=== PATIENT | female | born 2000 | race African-American/Black ===

== ENCOUNTER 2023-04-29 10:00 | Outpatient (REF) | payer OTHER, SELFPAY ==
[2023-04-29 12:54] LABS: Syphilis Screen Nonreactive (Nonreactive)
[2023-04-29 15:03] LABS: Appearance Urine Cloudy; Color Urine Yellow; Glucose Urine UA Negative (Negative); Leukocyte Esterase Urine Negative (Negative); Nitrite Urine Negative (Negative); PH 5.5 (5.0-9.0); Specific Gravity - Urine 1.025 (1.005-1.025); UMIC TRIGGER UACC YES; Urine Blood Small (1+) (Negative); Urine Ketones Negative (Negative); Urine Protein Negative (Neg-Trace)
[2023-04-29 15:11] LABS: Bacteria Urine Trace (None Seen); Hyaline Casts Urine 0-2 /LPF (0-2); RBC Urine 0-2 /HPF (0-2); Squamous Epithelial Cell Urine 0-2 /HPF (0-2); WBC Urine 0-5 /HPF (0-5)
[2023-05-02 05:07] LABS: HBc Num1 0.04 S/CO (0.00-0.79); HBsAGNum1 0.31 S/CO (0.00-0.99); HIV AB/AG Nonreactive (Nonreactive); HIV Num 1 0.05 S/CO (0.00-0.99); Hepatitis B Core Antibody Nonreactive (Nonreactive); Hepatitis B Surface Antigen Negative (Negative); ~HepC Num1 0.08 S/CO (0.00-0.79); ~Hepatitis C Antibody Nonreactive (Nonreactive)
[2023-05-02 05:50] LABS: HBS Num1 8.81 mIU/mL (0-7.99)
[2023-05-02 06:40] LABS: HBS Num2 8.75 mIU/mL (0-7.99); HBS Num3 8.73 mIU/mL (0-7.99); ~Hepatitis B Surface Antibody GRAYZONE (Nonreactive)
== END 2023-04-29 10:01 | disposition home or self-care (01) ==
LOC: HO.WFDLDS 10:00
PROVIDERS: Visit Provider Nurse Practitioner Family
DX: Z11.3 Encounter for screening for infections with a predominantly sexual mode of transmission (principal); Z11.4 Encounter for screening for human immunodeficiency virus [HIV]
CPT/HCPCS: 36415; 81001; 81003; 86704; 86706; 86780; 86803; 87340; 87389

== ENCOUNTER 2023-05-02 09:26 | Outpatient (REF) | payer OTHER, SELFPAY | END 2023-05-02 09:27 | disposition home or self-care (01) | LOC: HO.LAB 09:26 | PROVIDERS: Visit Provider Nurse Practitioner Family | DX: Z13.89 Encounter for screening for other disorder (principal) ==

== ENCOUNTER → 2023-09-06 13:18 | Outpatient (AMB) | payer OTHER, SELFPAY ==
--- NOTE | 2023-09-06 13:08 | AM.OFFWIN_ITS ---
Intake Vital Signs 09/06/23 13:09 Height 5 ft 3 in Weight 164 lb 2 oz BMI 29.1 BP 100/62 Blood Pressure Location Rt brachial Position Sitting Respiration 13 Pulse 74 Pulse Source Pulse Oximeter Temp 97.8 F Temp Source Temporal Artery Scan Pulse Oximetry (%) 99 Oxygen Delivery Method Room Air Intake Visit Reasons: ear pain Intake Note: pain in both ears since tuesday. recently took trip to [facility] and in the water alot. now has pain in inner and outer ear with pressure. Patient Tobacco Use Status: Never used Tobacco Accompanied by: Self / Same As Patient Allergies Seasonal Allergies Allergy (Severe, Verified 09/06/23 14:14) Swelling Medication List - Last Reconciled 09/06/23 by Tricia Merritt CNP diphenhydramine HCl (Benadryl) 25 mg PO BEDTIME PRN etonogestrel (Nexplanon) subdermal HPI HPI Comments History of Present Illness Details 23-year-old female presents with complai nts of bilateral ear pain and pressure. She notes that his symptoms have been ongoing for the past 5 days. She notes feels as though there is fluid in her ears. Her symptoms started shortly after she returned from vacation in [place]; she spent significant amount of time in the pool and river [facility] Medical History (Updated 09/06/23 @ 14:29 by Tricia Merritt CNP) Seasonal allergies Eczema Surgical History (Updated 04/28/23 @ 13:26 by Dina Hurtado CMA) No pertinent past surgical history Family History (Updated 04/28/23 @ 13:30 by Dina Hurtado CMA) Maternal Grandfather Diabetes Prostate cancer Lung cancer Maternal Grandmother Emphysema lung Hypertension Mother High blood cholesterol Father High blood cholesterol Kidney stones (Updated 04/28/23 @ 13:36 by Dina Hurtado CMA) Household Members: Family Both parents involved: No Caregiver staying overnight: No Housing: House Are you a primary date night caregiver to a significant other at home: No Do you presently have visiting nurse or other home services: No 75 years or older and lives alone: No Alcohol intake: current Alcohol intake frequency: holidays/special occasions only Alcohol type: wine and hard liquor Patient Tobacco Use Status: Never used Tobacco e-Cigarette/Vaping Use: Never Used Special yusef needs: No Agree to transfusion: Yes service: No Current occupational status: employed Current occupation: [employer] Current occupational exposures/hazards: Yes Sexual orientation: Bisexual Gender identity: Female Cognitive needs: No Hearing needs: No Vision needs: No Review of Systems Const Details: Const Denies chills, Denies fatigue, Denies fever(s), Denies headache(s) and Denies weakness ENT Reports as per HPI Resp Denies cough, Denies dyspnea, Denies wheezing and Denies other (shortness of breath) Cardio Denies chest pain, Denies lightheadedness, Denies dyspnea and Denies other (palpitations) Neuro Denies dizziness, Denies headache(s), Denies numbness, Denies tingling and Denies weakness Psych Denies anxiety, Denies depression, Denies memory?loss Endo Denies fatigue Aller/Immun Denies wheezing Physical Exam Vital Signs: Last Vital Signs Temp 97.8 F 09/06/23 13:09 Pulse 74 09/06/23 13:09 Resp 13 09/06/23 13:09 Pulse Ox 99 09/06/23 13:09 Oxygen Delivery Method Room Air 09/06/23 13:09 BMI result Body Mass Index 29.1 Const Other: Const General: well developed; No acute distress Nutritional Appearance: well nourished Orientation/consciousness: patient oriented x3 HEENT Head is normocephalic Significant erythema noted to both ear canal and TM, scant yellow drainage noted on the right TM Nasal turbinates and oropharynx are pink and moist Sinuses are nontender with palpation No auricular or cervical lymphadenopathy Eyes General: appearance normal, both eyes and all related structures Pupils: Equal, round and reactive pupils present EOM: EOMs intact bilaterally Resp Effort & Inspection: normal respiratory effort Auscultation: clear to auscultation bilaterally Cardio Rate: regular rate Rhythm: regular rhythm Heart sounds: S1 normal heart sound present, S2 normal heart sound present, no gallops, no murmurs and no rubs Bruits: no abdominal aortic bruits and no carotid bruits Neuro General: patient oriented x3 and gait normal, no focal neuro deficit Cranial nerves: Yes Equal, round and reactive pupils present Psych Affect: normal affect Assessment & Plan Assessment & Plan (1) Bilateral otitis media: Code(s): H66.93 - Otitis media, unspecified, bilateral Plan: Patient reports 5 days of bilateral ear pain and pressure. Her symptoms started shortly after spending significant amount of time in the pool and river while vacationing Significant erythema noted to both ear canal and TM, scant yellow drainage noted on the right TM Augmentin, ofloxacin, and ibuprofen as prescribed Avoid swimming pools or xie until healed Follow-up with worsening or new symptoms Verbalized understanding and agreed with treatment plan (2) Bilateral otitis externa: Code(s): H60.93 - Unspecified otitis externa, bilateral Plan: As above Medications: New ofloxacin 0.3% Apply 5 drops in both ears x 7 days 5 drps otic (ears) DAILY 10 mL 0RF 7 days amoxicillin-pot clavulanate 500-125 mg (Augmentin) 1 tab PO BID 14 tabs 0RF 7 days ibuprofen 600 mg PO Q6H PRN 60 tabs 0RF pain Coding Level of Care Code Est Pt Level 2 (10160) Diagnoses Bilateral otitis media H66.93 Bilateral otitis externa H60.93
[2023-09-06 13:09] VITALS: BP 100/62; PULSE 74; RESP 13; TEMP 36.6; O2SAT 99; BMI 29.1
== END ==
DX: H66.93 Otitis media, unspecified, bilateral (principal); H60.93 Unspecified otitis externa, bilateral
CPT/HCPCS: 99212

== ENCOUNTER 2023-11-28 08:59 | Outpatient (AMB) | payer OTHER, SELFPAY ==
[2023-11-28 09:20] VITALS: BP 118/60; PULSE 73; TEMP 36.5; O2SAT 99; BMI 30.3
--- NOTE | 2023-11-28 09:20 | A.OFFPC_ITS ---
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 care Intake Note: Patient is here as a new patient, would like her iron levels checked. Allergies Seasonal Allergies Allergy (Severe, Verified 11/28/23 09:34) Swelling Medication List - Last Reconciled 11/28/23 by Tricia Merritt CNP diphenhydramine HCl (Benadryl) 25 mg PO BEDTIME PRN etonogestrel (Nexplanon) subdermal fluticasone propionate 50 mcg/actuation 1 spray intranasal BID Tobacco use date assessed: 11/28/23 Dental Screening Dental Screen Date: 11/28/23 Did you have a dental visit in the last 12 months?: Yes Did you have a dental problem in the last 6 months where you did not have access to dental care?: No Was dental information given to patient?: Patient has dentist HPI HPI Comments History of Present Illness Details New patient Prior PCP:?[facility] Last office visit/CPE/Labs: About 6 years Acute issue(s): Anxiety and depression. No history of psychotropic medications or psychotherapy. She notes that anxiety often interferes with her daily activities and that she panics and shut down easily due to her anxiety. She states that her depression does not interfere with her daily life. Eczema. Currently on her ears, face, and forearms -Not on medication PMHx: Anxiety, depression, eczema SurgHx: None FHx: Mom: Asthma, HLD. Dad: HTN, HLD. MGM: Asthma, HLD, DM, clotting disorder. MGF: Asthma, HTN, DM, lung cancer, prostate cancer''' SocHx: Nonsmoker. Drinks occasionally. Smokes marijuana daily. [facility] Medical History (Updated 11/28/23 @ 09:52 by Tricia Merritt CNP) Seasonal allergies Eczema Surgical History No pertinent past surgical history Family History (Updated 11/28/23 @ 10:42 by Federica Neff CMA) Maternal Grandfather Diabetes Prostate cancer Lung cancer Asthma Hypertension Maternal Grandmother Emphysema lung Hypertension Asthma High blood cholesterol Diabetes Clotting disorder Mother High blood cholesterol Asthma Father High blood cholesterol Kidney stones Hypertension Other Mental health disorder Substance abuse Social History (Updated 04/28/23 @ 13:36 by Dina Hurtado [facility]) Household Members: Family Housing: House Are you a primary foster care worker to a significant other at home: No Do you presently have visiting nurse or other home services: No Alcohol intake: current Alcohol intake frequency: holidays/special occasions only Alcohol type: wine and hard liquor Patient Tobacco Use Status: Never used Tobacco e-Cigarette/Vaping Use: Never Used Special yusef needs: No Agree to transfusion: Yes service: No Current occupational status: employed Current occupation: [employer] [place] Current occupational exposures/hazards: Yes Sexual orientation: Bisexual Gender identity: Female Cognitive needs: No Hearing needs: No Vision needs: No Questionnaire PHQ-9 Over the last 2 weeks, how often have you been bothered by any of the following problems? 1. Little interest or pleasure in doing things: several days 2. Feeling down, depressed, or hopeless: several days 3. Trouble falling or staying asleep, or sleeping too much: several days 4. Feeling tired or having little energy: several days 5. Poor appetite or overeating: not at all 6. Feeling bad about yourself - or that you are a failure or have let yourself or your family down: not at all 7. Trouble concentrating on things, such as reading the newspaper or watching television: several days 8. Moving or speaking so slowly that other people could have noticed. Or the opposite - being so fidgety or restless that you have been moving around a lot more than usual: not at all 9. Thoughts that you would be better off or of hurting yourself in some way: not at all Total score: 5 Depression Screening Interpretation: Positive Depression Screening Follow-up: Existing condition and New Medication prescribed Depression Screening Done: Yes Source: Developed by Drs. Tate Rajput, Radha Do, Julián Garibay and colleagues, with an educational kathia from [employer]. Thrive Questionnaire Date Thrive assessed: 11/28/23 I am a: Patient What is your living situation today?: I have a steady place to live Within the past 12 months, did the food you bought not last and you didn't have the money to get more?: Never true Within the past 12 months, did you worry whether your food would run out before you got money to buy more?: Never true Do you have trouble paying for medicines?: No Do you have trouble getting transportation to medical appointments?: No Do you have trouble paying your heating and electricity bill?: No Do you have trouble taking care of your child, family member or friend?: No Do you have trouble with day-to-day activities such as bathing, preparing meals, shopping, managing finances, etc.?: No Are you currently unemployed and looking for a job?: No Are you interested in more education?: No THRIVE Score: 0 AUDIT C Alcohol Use Questionnaire (AUDIT-C) 1. How often do you have a drink containing alcohol?: Monthly or less 2. How many drinks containing alcohol do you have on a typical day when you are drinking?: 1 or 2 3. How often do you have six or more drinks on one occasion?: Never Total Score: 1 DWIGHT-7 AMB Questionnaire DWIGHT-7 Date DWIGHT - 7 assessed: 11/28/23 Feeling nervous, anxious, or on edge: 1 = Several days Not being able to stop or control worryin = Several days Worrying too much about different things: 1 = Several days Trouble relaxin = Several days Being so restless that it is hard to sit still: 1 = Several days Becoming easily annoyed or irritable: 3 = Nearly every day Feeling afraid as if something awful might happen: 0 = Not at all Total DWIGHT-7 score (0-4 normal; 5-9 mild; 10-14 moderate; 15-21 severe): 8 Source: Developed by Drs. Tate Rajput, Radha Do, Julián Garibay and colleagues, with an educational kathia from [employer]. Review of Systems Const Details: Const Denies chills, Denies fatigue, Denies fever(s), Denies headache(s) and Denies weakness ENT Denies dizziness and Denies headache(s) Card Denies chest pain, Denies lightheadedness, Denies dyspnea and Denies other (Palpitations) Resp Denies cough, Denies dyspnea, Denies wheezing and Denies other ( shortness of breath) GI Denies abdominal pain, Denies melena, Denies hematochezia, Denies change in bowel habits, Denies dyspepsia and Denies nausea Denies hematuria and Denies dysuria Musc Denies abnormal gait, Denies myalgias, Denies arthralgias, Denies numbness and Denies tingling Skin/Breast Reports eczema, Denies unusual bruising and Denies wounds Neuro Denies abnormal gait, Denies dizziness, Denies headache(s), Denies memory loss, Denies numbness, Denies Sensory deficit (Neuro), Denies tingling and Denies weakness Psych Reports anxiety, Reports depression, Denies memory loss Endo Denies cold intolerance, Denies fatigue, Denies heat intolerance, Denies polydipsia and Denies polyuria Aller/Immun Denies wheezing Physical exam (Primary Care) Vital Signs: Last Vital Signs Temp 97.7 F 11/28/23 09:20 Pulse 73 11/28/23 09:20 BP 118/60 11/28/23 09:20 Pulse Ox 99 11/28/23 09:20 Oxygen Delivery Method Room Air 11/28/23 09:20 BMI result Body Mass Index 30.3 Tobacco/Smoking Status: Tobacco use Status Tobacco use date assessed 11/28/23 11/28/23 09:29 Patient Tobacco Use Status Never used Tobacco 11/28/23 09:29 e-Cigarette/Vaping Use Never Used 11/28/23 09:29 PHQ-9: PHQ-9 Score PHQ-9: Total score 5 11/28/23 13:38 Depression Screening Interpretation: Positive Depression Screening Follow-up: Existing condition and New Medication prescribed Thrive Assessment: Date of Thrive Assessment Date Thrive assessed 11/28/23 11/28/23 10:13 Const Other: General: no acute distress and well developed Nutritional Appearance: well nourished Orientation/consciousness: patient oriented x3 HENMT Head: Yes normocephalic and Yes atraumatic Eyes General: appearance normal, both eyes and all related structures Pupils: Equal, round and reactive pupils present EOM: EOMs intact bilaterally Resp Effort & Inspection: normal respiratory effort Auscultation: clear to auscultation bilaterally Cardio Rate: regular rate Rhythm: regular rhythm Heart sounds: S1 normal heart sound present, S2 normal heart sound present, no gallops, no murmurs and no rubs GI Palpation (GI): No Abdominal aortic bruit present, Soft to palpation, nontender, No hepatosplenomegaly present and No Rebound tenderness present Auscultation: normal bowel sounds General: Yes no CVA tenderness Back/Spine/Pelvis Back: no CVA tenderness Cervical Spine: cervical ROM normal and No Cervical spine tenderness Thoracic/Lumbar Spine: thoraco-lumbar ROM normal, No pain with thoraco-lumbar ROM, No thoracic spinal tenderness and No lumbar spinal tenderness Extrem General: Yes normal to inspection, No edema and No calf tenderness Skin General: warm and dry. Normal skin color. Normal skin turgor Lesions: no lesions Rashes: eczema to face, ears, and forearm Trauma: no lacerations or abrasions Wounds: no wounds Nails: normal Neuro General: patient oriented x3, gait normal and no focal neuro deficit Cranial nerves: Yes Equal, round and reactive pupils present Cognition (Neuro): normal cognition Gait exam (Neuro): Normal gait present Sensory Exam: No Sensory deficit (Neuro) Psych Appearance: grossly normal Affect: normal affect Attitude: cooperative Thought process: Normal thought process present Assessment and Plan Assessment & Plan (1) Anxiety and depression: Code(s): F41.9 - Anxiety disorder, unspecified; F32.A - Depression, unspecified Plan: Anxiety interferes with her daily activities Declines psychotherapy DWIGHT-7 in PHQ-9 scores revealed mild anxiety and depression Escitalopram ordered. Take as prescribed Routine exercise encouraged Follow-up in 2 weeks or return sooner with worsening or new symptoms Verbalized understanding and agreed with treatment plan (2) Eczema: Code(s): L30.9 - Dermatitis, unspecified Plan: Eczema to face, ears, and forearm Triamcinolone cream as prescribed Follow-up with worsening or new signs and symptoms Verbalized understanding and agreed with the treatment plan (3) Laboratory tests ordered as part of a complete physical exam (CPE): Code(s): Z00.00 - Encounter for general adult medical examination without abnormal findings Plan: Fasting labs ordered in preparation of a complete physical exam. Advised to fast for at least 10 hours before getting labs drawn. May drink water Verbalized understanding and agreed with treatment plan. Orders: Orders Comprehensive [place]. Panel Fast Today Z00.00 - Encounter for general adult medical examination without abnormal findings Lipid Panel Today Z00.00 - Encounter for general adult medical examination without abnormal findings Complete Blood Count Auto Diff Today Z00.00 - Encounter for general adult medical examination without abnormal findings TSH reflex Free T4 Today Z00.00 - Encounter for general adult medical examinatio n without abnormal findings UA CC w/rflx Micro + Cult Today Z00.00 - Encounter for general adult medical examination without abnormal findings Medications: New escitalopram oxalate (Lexapro) 10 mg PO DAILY 30 days 30 tabs 3RF triamcinolone acetonide 0.1% 1 appl topical BID 80 grams 1RF Coding Level of Care Code New Pt Level 4 (78746) Diagnoses Anxiety and depression F41.9; F32.A Eczema L30.9 Laboratory tests ordered as part of a complete physical exam (CPE) Z00.00
== END 2023-11-28 09:58 | disposition home or self-care (01) ==
LOC: HO.HMGFM 08:59
PROVIDERS: Visit Provider Nurse Practitioner Family
DX: F32.A Depression, unspecified (principal); F41.9 Anxiety disorder, unspecified; L30.9 Dermatitis, unspecified
CPT/HCPCS: 99214

== ENCOUNTER 2023-11-28 11:39 | Outpatient (REF) | payer OTHER, SELFPAY ==
[2023-11-28 14:22] LABS: Appearance Urine Clear; Color Urine Yellow; Glucose Urine UA Negative (Negative); Leukocyte Esterase Urine Negative (Negative); Nitrite Urine Negative (Negative); PH 5.5 (5.0-9.0); Specific Gravity - Urine 1.025 (1.005-1.025); UMIC TRIGGER UACC YES; Urine Blood Trace (Negative); Urine Ketones Negative (Negative); Urine Protein Negative (Neg-Trace)
[2023-11-28 14:24] LABS: MANUAL DIFF FLAG NO
[2023-11-28 14:26] LABS: Bacteria Urine Trace (None Seen); Hyaline Casts Urine 0-2 /LPF (0-2); RBC Urine 0-2 /HPF (0-2); Squamous Epithelial Cell Urine 0-2 /HPF (0-2); WBC Urine 0-5 /HPF (0-5)
[2023-11-28 14:35] LABS: Basophils Absolute Auto 0.1 X10*3/uL (0.0-0.2); Basophils Percent Auto 0.9 % (0-2); Eosinophils Absolute Auto 0.2 X10*3/uL (0.0-0.4); Eosinophils Percent Auto 2.7 % (0-4); Hematocrit 38.3 % (37.0-47.0); Hemoglobin 12.1 g/dl (12.0-16.0); Imm Gran Abs Auto 0.02 X10*3/uL (0.00-0.03); Imm Gran Pct Auto 0.3 % (0.0-0.4); Lymphocytes Absolute Auto 2.7 X10*3/uL (1.2-4.9); Lymphocytes Percent Auto 36.5 % (20-40); Mean Corpuscular HGB Conc 31.6 g/dl (31.0-35.0); Mean Corpuscular Hemoglobin 26.8 pg (27.0-33.0); Mean Corpuscular Volume 84.9 fL (80.0-98.0); Mean Platelet Volume 8.6 fL (9.4-12.3); Monocytes Absolute Auto 0.6 X10*3/uL (0.1-1.2); Monocytes Percent Auto 7.8 % (2-11); Neutrophils Absolute Auto 3.9 x10*3/uL (2.0-8.3); Neutrophils Percent Auto 51.8 % (45-73); Platelet Count 422 X10*3/uL (160-400); Red Blood Count 4.51 X10*6/uL (4.20-5.50); Red Cell Distribution Width 13.5 % (11.0-16.0); White Blood Count 7.5 X10*3/uL (4.8-10.8)
[2023-11-28 15:06] LABS: Alanine Aminotransferase 11 U/L (0-31); Albumin Level 4.2 g/dL (3.5-5.0); Alkaline Phosphatase 72 U/L (39-117); Anion Gap 11 (12-20); Aspartate Amino Transferase 12 U/L (5-31); Bilirubin Total 0.3 mg/dL (0.0-1.0); Blood Urea Nitrogen 14 mg/dL (9-16); Calcium 9.5 mg/dL (8.4-10.2); Carbon Dioxide 25 mmol/L (22-29); Chloride 107 mmol/L (96-108); Cholesterol 134 mg/dL (<200); Estimated Glomerular Filt Rate > 60; Glucose Fasting 86 mg/dL (60-99); HDL Cholesterol 60 mg/dL (>40); LDL Cholesterol Calculated 64 mg/dL (<100); Sodium 139 mmol/L (135-145); Total Protein 7.2 g/dL (6.5-8.0); Triglycerides 54 mg/dL (<150)
[2023-11-28 15:21] LABS: TSH reflex Free T4 1.05 uIU/mL (0.32-4.0)
== END 2023-11-28 11:40 | disposition home or self-care (01) ==
LOC: HO.WFDLDS 11:39
PROVIDERS: Visit Provider Nurse Practitioner Family
DX: Z00.00 Encounter for general adult medical examination without abnormal findings (principal)
CPT/HCPCS: 36415; 80053; 80061; 81001; 84443; 85025

== ENCOUNTER 2023-12-26 16:13 | Outpatient (AMB) | payer OTHER, SELFPAY ==
--- NOTE | 2023-12-26 16:15 | MHC.PC.OV ---
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 Accompanied by: Self / Same As Patient Allergies Seasonal Allergies Allergy (Severe, Verified 12/26/23 16:53) Swelling Medication List - Last Reconciled 12/26/23 by Tricia Merritt CNP diphenhydramine HCl (Benadryl) 25 mg PO BEDTIME PRN escitalopram oxalate (Lexapro) 10 mg PO DAILY 30 days etonogestrel (Nexplanon) subdermal fluticasone propionate 50 mcg/actuation 1 spray intranasal BID triamcinolone acetonide 0.1% 1 appl topical BID Tobacco use date assessed: 11/28/23 Dental Screening Dental Screen Date: 12/26/23 Did you have a dental visit in the last 12 months?: Yes Did you have a dental problem in the last 6 months where you did not have access to dental care?: No Was dental information given to patient?: Patient has dentist HPI HPI Comments History of Present Illness Details 23-year-old female presents for anxiety and depression follow-up She was started on Lexapro at the last visit about a month ago which she notes she has been taking as prescribed without adverse reactions. She reports improved anxiety symptoms on current regimen. She notes I am not as bothered or shut down anymore. 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 She denies SI/HI She states that she has been exercising twice a week [facility] Medical History Seasonal allergies Eczema Surgical History No pertinent past surgical history Family History Maternal Grandfather Diabetes Prostate cancer Lung cancer Asthma Hypertension Maternal Grandmother Emphysema lung Hypertension Asthma High blood cholesterol Diabetes Clotting disorder Mother High blood cholesterol Asthma Father High blood cholesterol Kidney stones Hypertension Other Mental health disorder Substance abuse Social History Household Members: Family Both parents involved: No Caregiver staying overnight: No Housing: House Are you a primary intensive care anaesthetist to a significant other at home: No Do you presently have visiting nurse or other home services: No 75 years or older and lives alone: No Alcohol intake: current Alcohol intake frequency: holidays/special occasions only Alcohol type: wine and hard liquor Patient Tobacco Use Status: Never used Tobacco e-Cigarette/Vaping Use: Never Used Special yusef needs: No Agree to transfusion: Yes service: No Current occupational status: employed Current occupation: [employer] [place] Current occupational exposures/hazards: Yes Sexual orientation: Bisexual Gender identity: Female Cognitive needs: No Hearing needs: No Vision needs: No Questionnaire PHQ-9 Over the last 2 weeks, how often have you been bothered by any of the following problems? 1. Little interest or pleasure in doing things: several days 2. Feeling down, depressed, or hopeless: more than half the days 3. Trouble falling or staying asleep, or sleeping too much: more than half the days 4. Feeling tired or having little energy: more than half the days 5. Poor appetite or overeating: several days 6. Feeling bad about yourself - or that you are a failure or have let yourself or your family down: not at all 7. Trouble concentrating on things, such as reading the newspaper or watching television: several days 8. Moving or speaking so slowly that other people could have noticed. Or the opposite - being so fidgety or restless that you have been moving around a lot more than usual: not at all 9. Thoughts that you would be better off or of hurting yourself in some way: not at all Total score: 9 Depression Screening Interpretation: Positive Depression Screening Follow-up: Existing condition, In treatment and New Medication prescribed Depression Screening Done: Yes 47885 - PHQ-9 Billing: Yes Source: Developed by Drs. Tate Rajput, Radha Do, Julián Garibay and colleagues, with an educational kathia from [employer]. Thrive Questionnaire Date Thrive assessed: 11/28/23 DWIGHT-7 AMB Questionnaire DWIGHT-7 Date DWIGHT - 7 assessed: 12/26/23 Feeling nervous, anxious, or on edge: 2 = More than half the days Not being able to stop or control worryin = Several days Worrying too much about different things: 1 = Several days Trouble relaxin = More than half the days Being so restless that it is hard to sit still: 1 = Several days Becoming easily annoyed or irritable: 3 = Nearly every day Feeling afraid as if something awful might happen: 1 = Several days Total DWIGHT-7 score (0-4 normal; 5-9 mild; 10-14 moderate; 15-21 severe): 11 Source: Developed by Drs. Tate Rajput, Radha Do, Julián Garibay and colleagues, with an educational kathia from [employer]. DWIGHT-7 Assessment Billing DWIGHT-7 Assessment Tool: DWIGHT-7 Assessment 77046 Review of Systems Const Details: Const Denies chills, Denies fatigue, Denies fever(s), Denies headache(s) and Denies weakness ENT Denies dizziness and Denies headache(s) Card Denies chest pain, Denies lightheadedness, Denies dyspnea and Denies other (Palpitations) Resp Denies cough, Denies dyspnea, Denies wheezing and Denies other ( shortness of breath) GI Denies abdominal pain, Denies melena, Denies hematochezia, Denies change in bowel habits, Denies dyspepsia and Denies nausea Denies hematuria and Denies dysuria Musc Denies abnormal gait, Denies myalgias, Denies arthralgias, Denies numbness and Denies tingling Skin/Breast Denies rash, Denies unusual bruising and Denies wounds Neuro Denies abnormal gait, Denies dizziness, Denies headache(s), Denies memory loss, Denies numbness, Denies Sensory deficit (Neuro), Denies tingling and Denies weakness Psych Reports anxiety, Denies depression, Denies memory loss Endo Denies cold intolerance, Denies fatigue, Denies heat intolerance, Denies polydipsia and Denies polyuria Aller/Immun Denies wheezing Physical exam (Primary Care) Vital Signs: Last Vital Signs Temp 98.3 F 12/26/23 16:17 Pulse 91 12/26/23 16:17 Resp 13 12/26/23 16:17 BP 118/60 12/26/23 16:17 Pulse Ox 98 12/26/23 16:17 Oxygen Delivery Method Room Air 12/26/23 16:17 BMI result Body Mass Index 30.8 Tobacco/Smoking Status: Tobacco use Status Tobacco use date assessed 11/28/23 12/26/23 16:19 Patient Tobacco Use Status Never used Tobacco 12/26/23 16:19 e-Cigarette/Vaping Use Never Used 12/26/23 16:19 PHQ-9: PHQ-9 Score PHQ-9: Total score 9 12/26/23 16:19 Depression Screening Interpretation: Positive Depression Screening Follow-up: Existing condition, In treatment and New Medication prescribed Thrive Assessment: Date of Thrive Assessment Date Thrive assessed 11/28/23 12/26/23 16:19 Const Other: General: no acute distress and well developed Nutritional Appearance: well nourished Orientation/consciousness: patient oriented x3 HENMT Head: Yes normocephalic and Yes atraumatic Eyes General: appearance normal, both eyes and all related structures Pupils: Equal, round and reactive pupils present EOM: EOMs intact bilaterally Resp Effort & Inspection: normal respiratory effort Auscultation: clear to auscultation bilaterally Cardio Rate: regular rate Rhythm: regular rhythm Heart sounds: S1 normal heart sound present, S2 normal heart sound present, no gallops, no murmurs and no rubs GI Palpation (GI): No Abdominal aortic bruit present, Soft to palpation, nontender, No hepatosplenomegaly present and No Rebound tenderness present Auscultation: normal bowel sounds General: Yes no CVA tenderness Back/Spine/Pelvis Back: no CVA tenderness Cervical Spine: cervical ROM normal and No Cervical spine tenderness Thoracic/Lumbar Spine: thoraco-lumbar ROM normal, No pain with thoraco-lumbar ROM, No thoracic spinal tenderness and No lumbar spinal tenderness Extrem General: Yes normal to inspection, No edema and No calf tenderness Skin General: warm and dry. Normal skin color. Normal skin turgor Neuro General: patient oriented x3, gait normal and no focal neuro deficit Cranial nerves: Yes Equal, round and reactive pupils present Cognition (Neuro): normal cognition Gait exam (Neuro): Normal gait present Sensory Exam: No Sensory deficit (Neuro) Psych Appearance: grossly normal Affect: normal affect Attitude: cooperative Thought process: Normal thought process present Assessment and Plan Assessment & Plan (1) Anxiety and depression: Code(s): F41.9 - Anxiety disorder, unspecified; F32.A - Depression, unspecified Plan: Reports increased anxiety symptoms PHQ-9 and DWIGHT-7 scores revealed mild depression and moderate anxiety respectively Will start buspirone 7.5 mg daily. Take as prescribed Continue to take escitalopram as prescribed Routine exercise encouraged Follow-up in 2 weeks or return sooner with worsening or new symptoms Verbalized understanding and agreed with treatment plan Medications: New buspirone 7.5 mg PO BID 30 days 60 tabs 3RF Coding Level of Care Code Est Pt Level 3 (97836) Diagnoses Anxiety and depression F41.9; F32.A Additional Codes DWIGHT-7 Assessment Billing - DWIGHT-7 Assessment Tool: DWIGHT-7 Assessment 95285 ([id number])
[2023-12-26 16:17] VITALS: BP 118/60; PULSE 91; RESP 13; TEMP 36.8; O2SAT 98; BMI 30.8
== END 2023-12-26 17:43 | disposition home or self-care (01) ==
LOC: HO.HMGFM 16:13
PROVIDERS: Visit Provider Nurse Practitioner Family
DX: F41.9 Anxiety disorder, unspecified (principal); F32.A Depression, unspecified
CPT/HCPCS: 96127; 99213

== ENCOUNTER → 2024-02-03 08:22 | Outpatient (BNV) | payer OTHER, SELFPAY ==
--- NOTE | 2024-02-03 08:22 | AM.OFFWIN_ITS ---
Intake Intake Visit Reasons: Amb Documentation Patient Tobacco Use Status: Never used Tobacco Allergies Seasonal Allergies Allergy (Severe, Verified 02/03/24 08:22) Swelling Medication List - Last Reconciled 02/03/24 by Arlene Manuel [facility] buspirone 7.5 mg PO BID 30 days diphenhydramine HCl (Benadryl) 25 mg PO BEDTIME PRN doxycycline hyclate 100 mg PO BID 10 days escitalopram oxalate (Lexapro) 10 mg PO DAILY 30 days etonogestrel (Nexplanon) subdermal fluticasone propionate 50 mcg/actuation 1 spray intranasal BID triamcinolone acetonide 0.1% 1 appl topical BID HPI HPI Comments 2 History of Present Illness0 Details Here today for a cyst like area, right groin, present for days. Tried to express drainage, reports bloody, pus like drainage. Area became larger after doing this. UTD on Td Denies fever, chills. PFSH Medical History Seasonal allergies Eczema Surgical History No pertinent past surgical history Family History Maternal Grandfather Diabetes Prostate cancer Lung cancer Asthma Hypertension Maternal Grandmother Emphysema lung Hypertension Asthma High blood cholesterol Diabetes Clotting disorder Mother High blood cholesterol Asthma Father High blood cholesterol Kidney stones Hypertension Other Mental health disorder Substance abuse Social History Household Members: Family Both parents involved: No Caregiver staying overnight: No Housing: House Are you a primary home care giver to a significant other at home: No Do you presently have visiting nurse or other home services: No 75 years or older and lives alone: No Alcohol intake: current Alcohol intake frequency: holidays/special occasions only Alcohol type: wine and hard liquor Patient Tobacco Use Status: Never used Tobacco e-Cigarette/Vaping Use: Never Used Special yusef needs: No Agree to transfusion: Yes service: No Current occupational status: employed Current occupation: [employer] [place] Current occupational exposures/hazards: Yes Sexual orientation: Bisexual Gender identity: Female Cognitive needs: No Hearing needs: No Vision needs: No Review of Systems Const All systems reviewed & are unremarkable except as noted in HPI and below Physical Exam Female genitals images: 2 1. abscess, without drainage. Overlying skin intact, not warm or red. Assessment & Plan Assessment & Plan (1) Abscess of groin, right: Code(s): L02.214 - Cutaneous abscess of groin Plan: warm moist comps as often as possible, gentle massage and expression may need I&D If cont w no improvement, advised to schedule I&D after taking AB for at least 5 days. Coding Level of Care Code Est Pt Level 3 (15241) Diagnoses Abscess of groin, right L02.214
== END ==
PROVIDERS: Visit Provider Nurse Practitioner Family
DX: L02.214 Cutaneous abscess of groin (principal)
CPT/HCPCS: 99213

== ENCOUNTER 2024-02-16 10:14 | Outpatient (AMB) | payer OTHER, SELFPAY ==
--- NOTE | 2024-02-16 10:36 | MHC.PC.OV ---
Vital Signs 02/16/24 10:55 02/16/24 10:58 Height 5 ft 3 in 5 ft 3 in Weight 177 lb 6 oz BMI 31.4 BP 104/60 Blood Pressure Location Lt brachial Position Sitting Respiration 14 Pulse 80 Pulse Source Pulse Oximeter Pulse Oximetry (%) 100 Oxygen Delivery Method Room Air Intake Visit Reasons: [facility] from [facility] Intake Note: Patient is transferring care from [place] to . Lab Aid Required: No Accompanied by: Self / Same As Patient Allergies Seasonal Allergies Allergy (Severe, Verified 02/16/24 11:30) Swelling Medication List - Last Reviewed 02/16/24 by Dina Hurtado, ERNESTINE buspirone 7.5 mg PO BID 30 days escitalopram oxalate (Lexapro) 15 mg (1.5 x 10 mg) PO DAILY etonogestrel (Nexplanon) subdermal fluticasone propionate 50 mcg/actuation 1 spray intranasal BID triamcinolone acetonide 0.1% 1 appl topical BID Tobacco use date assessed: 11/28/23 Dental Screening Dental Screen Date: 12/26/23 HPI HPI Comments History of Present Illness Details 23-year-old female with generalized anxiety, major depressive disorder, seasonal allergies, eczema, current marijuana user, BV SurgHx: None FHx: Mom: Asthma, HLD, HTN, PreDM Dad: HTN, HLD, Renal disease. MGM: Asthma, HLD, DM, clotting disorde, lung ca & emphysema. MGF: Asthma, HTN, DM, lung cancer, prostate cancer Unknown Paternal family hx. SocHx: Nonsmoker. Drinks occasionally. Smokes marijuana daily. Labs 11/28/2023 show a normal CBC, normal CMP, normal TSH, normal lipid profile, normal urine Health Maintenance: Pap 11/2023 [facility] reports WNL Specialists: [facility] DWIGHT/MDD has been on lexapro and buspar for about 6 weeks. Has felt mild improvement. Sleeping better; anxiety was bad at bedtime. Less fidgety. But cont to have moments where wants to shut down d/t feeling overwhelmed. Denies SI/HI or self medication. Takes meds as directed. Interested in STD panel testing. Active w/ [facility] for WH. Hx of BV Currently having vaginal odor. Needs Derm referral. Using topical steroid but feels this is not as effective. Boil inside of R thigh,has improved after AB and warm moist soaks Hep B titer in the [place] zone. Needs hep B booster. [facility] Medical History Seasonal allergies Eczema Surgical History No pertinent past surgical history Family History Maternal Grandfather Diabetes Prostate cancer Lung cancer Asthma Hypertension Maternal Grandmother Emphysema lung Hypertension Asthma High blood cholesterol Diabetes Clotting disorder Mother High blood cholesterol Asthma Father High blood cholesterol Kidney stones Hypertension Other Mental health disorder Substance abuse Social History Household Members: Family Housing: House Are you a primary assurance services manager health care to a significant other at home: No Do you presently have visiting nurse or other home services: No Alcohol intake: current Alcohol intake frequency: holidays/special occasions only Alcohol type: wine and hard liquor Patient Tobacco Use Status: Never used Tobacco e-Cigarette/Vaping Use: Never Used Special yusef needs: No Agree to transfusion: Yes service: No Current occupational status: employed Current occupation: [employer] [place] Current occupational exposures/hazards: Yes Sexual orientation: Bisexual Gender identity: Female Cognitive needs: No Hearing needs: No Vision needs: No Questionnaire Thrive Questionnaire Date Thrive assessed: 11/28/23 DWIGHT-7 AMB Questionnaire DWIGHT-7 Date DWIGHT - 7 assessed: 12/26/23 Source: Developed by Drs. Tate Rajput, Radha Do, Julián Garibay and colleagues, with an educational kathia from [employer]. Physical exam (Primary Care) Vital Signs: Last Vital Signs Pulse 80 02/16/24 10:55 Resp 14 02/16/24 10:55 BP 104/60 02/16/24 10:55 Pulse Ox 100 02/16/24 10:55 Oxygen Delivery Method Room Air 02/16/24 10:55 BMI result Body Mass Index 31.4 Tobacco/Smoking Status: Tobacco use Status Tobacco use date assessed 11/28/23 02/16/24 10:36 Patient Tobacco Use Status Never used Tobacco 02/16/24 10:36 e-Cigarette/Vaping Use Never Used 02/16/24 10:36 Thrive Assessment: Date of Thrive Assessment Date Thrive assessed 11/28/23 02/16/24 10:36 Const Other: Awake alert oriented Mucous membranes moist Regular rate and rhythm Lung sounds clear to auscultation bilat Cyst to right inner thigh improved from previous exam. Now the area is much smaller, more firm to palpation, no drainage or redness Mood and affect is appropriate Self swab for BV yielding a yellow discharge Immunizations Engerix-B (PF) 20 mcg/mL intramuscular suspension Performing Provider: MARIO Weaver Performing Location: [facility] Administered by: Heather Neri RN on 02/16/24 14:09 Dose Route Admin Location Dispensed Lot Number Expiration Date [facility] Refrigerated [employer] Driver 1 mL IM Left Deltoid 1 mL [id number] 09/22/24 [id number] [employer] VIS Given Date VIS Provided VIS Publication Date 02/16/24 Single Vaccine 23 Eligibility Eligibility Date Funding Source Not [facility] Eligible 02/16/24 Private Assessment and Plan Assessment & Plan (1) Eczema: Comment: Refer to dermatology for evaluation and treatment Code(s): L30.9 - Dermatitis, unspecified Qualifiers: Eczema type: flexural Qualified Code(s): L20.82 - Flexural eczema (2) Screen for STD (sexually transmitted disease): Comment: Testing ordered today. If positive will treat as appropriate. Code(s): Z11.3 - Encounter for screening for infections with a predominantly sexual mode of transmission (3) Skin cyst: Comment: Affecting the right inner thigh. Improved after doxycycline and warm soaks. Refer to dermatology for further evaluation and treatment. Code(s): L72.9 - Follicular cyst of the skin and subcutaneous tissue, unspecified (4) Anxiety and depression: Comment: Currently on Lexapro 10 mg and BuSpar 7.5 mg 2 times a day. Has been on this for 6 weeks. Feels it has been effective however would like to see a better benefit. The plan will be to increase her Lexapro to 15 mg daily and continue the BuSpar at the current dose. Return to office in 6 weeks to follow up on effectiveness, sooner if there is any issues. Code(s): F41.9 - Anxiety disorder, unspecified; F32.A - Depression, unspecified (5) Immunity status testing: Comment: hep b booster admin today recheck Hep B S AB in 1 month Code(s): Z.84 - Encounter for antibody response examination Orders: Orders Herpes Simplex Virus Ab IgG Today Z11.3 - Encounter for screening for infections with a predominantly sexual mode of transmission UA and rflx microscopic Today Z11.3 - Encounter for screening for infections with a predominantly sexual mode of transmission Hepatitis B Surface Antibody 03/18/24 Z01.84 - Encounter for antibody response examination Bacterial Vaginosis Panel Today Z11.3 - Encounter for screening for infections with a predominantly sexual mode of transmission CT NG by PCR Today Z11.3 - Encounter for screening for infections with a predominantly sexual mode of transmission HIV Ab/Ag Today Z11.3 - Encounter for screening for infections with a predominantly sexual mode of transmission Syphilis Screen Today Z11.3 - Encounter for screening for infections with a predominantly sexual mode of transmission Hepatitis B Surface Antigen Today Z11.3 - Encounter for screening for infections with a predominantly sexual mode of transmission Hepatitis B Adult Immunization Today Z23 - Encounter for immunization Referrals Dermatology Referral L30.9 - Dermatitis, unspecified, L72.9 - Follicular cyst of the skin and subcutaneous tissue, unspecified Medications: New escitalopram oxalate (Lexapro) 15 mg (1.5 x 10 mg) PO DAILY 45 tabs 1RF Refilled buspirone 7.5 mg PO BID 30 days 60 tabs 3RF Discontinued escitalopram oxalate (Lexapro) Discontinued Reason: Doctor's Order 10 mg PO DAILY 30 days 30 tabs 3RF Coding Level of Care Code Est Pt Level 4 (61204) Complex EM visit Add On G2211 Diagnoses Flexural eczema L20.82 Eczema type: flexural Screen for STD (sexually transmitted disease) Z11.3 Skin cyst L72.9 Anxiety and depression F41.9; F32.A Immunity status testing Z84
[2024-02-16 10:55] VITALS: BP 104/60; PULSE 80; RESP 14; O2SAT 100; BMI 31.4
== END 2024-02-16 11:05 | disposition home or self-care (01) ==
LOC: HO.HMGFM 10:14
PROVIDERS: Visit Provider Nurse Practitioner Family
DX: L20.82 Flexural eczema (principal); Z11.3 Encounter for screening for infections with a predominantly sexual mode of transmission; L72.9 Follicular cyst of the skin and subcutaneous tissue, unspecified; F41.9 Anxiety disorder, unspecified; F32.A Depression, unspecified; Z01.84 Encounter for antibody response examination; Z23 Encounter for immunization
CPT/HCPCS: 90471; 90746; 99214

== ENCOUNTER 2024-02-16 11:07 | Outpatient (REF) | payer OTHER, SELFPAY | END 2024-02-16 11:08 | disposition home or self-care (01) | LOC: HO.LNP 11:07 | PROVIDERS: Visit Provider Nurse Practitioner Family | DX: Z13.89 Encounter for screening for other disorder (principal) ==

== ENCOUNTER 2024-02-16 11:07 | Outpatient (REF) | payer OTHER, SELFPAY | END 2024-02-16 11:08 | disposition home or self-care (01) | LOC: HO.LAB 11:07 | PROVIDERS: Visit Provider Nurse Practitioner Family | DX: Z13.89 Encounter for screening for other disorder (principal) ==

== ENCOUNTER 2024-02-16 11:53 | Outpatient (REF) | payer OTHER, SELFPAY ==
[2024-02-16 14:11] LABS: Appearance Urine Clear; Color Urine Yellow; Glucose Urine UA Negative (Negative); Leukocyte Esterase Urine Negative (Negative); Nitrite Urine Negative (Negative); PH 6.5 (5.0-9.0); Specific Gravity - Urine <= 1.005 (1.005-1.025); UMIC TRIGGER UA YES; Urine Blood Trace (Negative); Urine Ketones Negative (Negative); Urine Protein Negative (Neg-Trace)
[2024-02-16 14:20] LABS: Bacteria Urine None Seen (None Seen); Hyaline Casts Urine 0-2 /LPF (0-2); RBC Urine 0-2 /HPF (0-2); Squamous Epithelial Cell Urine 0-2 /HPF (0-2); WBC Urine 0-5 /HPF (0-5)
[2024-02-16 16:22] LABS: CT PCR NOT DETECTED (Not Detect.); NG PCR NOT DETECTED (Not Detect.)
[2024-02-17 08:24] LABS: Syphilis Screen Nonreactive (Nonreactive)
[2024-02-17 08:27] LABS: HBsAGNum1 0.28 S/CO (0.00-0.99); HIV AB/AG Nonreactive (Nonreactive); HIV Num 1 0.04 S/CO (0.00-0.99); Hepatitis B Surface Antigen Negative (Negative)
[2024-02-17 09:46] LABS: BV Int Neg Control Negative (Negative); BV Int Pos Control Positive (Positive)
[2024-02-17 18:38] LABS: Herpes Simplex Type 2 IgG <0.90 index
== END 2024-02-16 11:54 | disposition home or self-care (01) ==
LOC: HO.WFDLDS 11:53
PROVIDERS: Visit Provider Nurse Practitioner Family
DX: Z11.3 Encounter for screening for infections with a predominantly sexual mode of transmission (principal); Z11.4 Encounter for screening for human immunodeficiency virus [HIV]
CPT/HCPCS: 0353U; 81001; 86695; 86696; 86780; 87340; 87389; 87480; 87510; 87660

== ENCOUNTER → 2024-02-24 14:51 | Outpatient (BNVA) | payer OTHER, SELFPAY | DX: Z13.89 Encounter for screening for other disorder (principal) | CPT/HCPCS: 84450; 84460; 84702; 85025; 86706; 86803; 87389; 99213 ==

== ENCOUNTER → 2024-02-27 15:06 | Outpatient (BNVA) | payer OTHER, SELFPAY | PROVIDERS: Visit Provider Physician Assistant Medical | DX: Z13.89 Encounter for screening for other disorder (principal) | CPT/HCPCS: 99213 ==

== ENCOUNTER 2024-03-28 11:00 | Outpatient (AMB) | payer OTHER, SELFPAY ==
[2024-03-28 11:17] VITALS: BP 100/60; PULSE 77; TEMP 37.2; O2SAT 99; BMI 32.0
--- NOTE | 2024-03-28 11:17 | MHC.OFFWIV ---
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 Accompanied by: Self / Same As Patient Allergies Seasonal Allergies Allergy (Severe, Verified 03/28/24 11:37) Swelling Medication List - Last Reconciled 03/28/24 by Mary Joseph RN buspirone 7.5 mg PO BID 30 days escitalopram oxalate (Lexapro) 15 mg (1.5 x 10 mg) PO DAILY etonogestrel (Nexplanon) subdermal fluticasone propionate 50 mcg/actuation 1 spray intranasal BID 90 days triamcinolone acetonide 0.1% 1 appl topical BID Do you need a note to return to daycare/school/sports/work: No HPI HPI Comments History of Present Illness Details Here today w/ c/o URI sx started yesterday feeling dizzy; then developed. pressure in forehead and behind eyes and in ears runny nose, PND, scratchy throat and cough started today used cough drops w/o relief. [facility] Medical History Seasonal allergies Eczema Surgical History No pertinent past surgical history Family History Maternal Grandfather Diabetes Prostate cancer Lung cancer Asthma Hypertension Maternal Grandmother Emphysema lung Hypertension Asthma High blood cholesterol Diabetes Clotting disorder Mother High blood cholesterol Asthma Father High blood cholesterol Kidney stones Hypertension Other Mental health disorder Substance abuse Social History Household Members: Family Both parents involved: No Caregiver staying overnight: No Housing: House Are you a primary clinical care coordinator to a significant other at home: No Do you presently have visiting nurse or other home services: No 75 years or older and lives alone: No Alcohol intake: current Alcohol intake frequency: holidays/special occasions only Alcohol type: wine and hard liquor Patient Tobacco Use Status: Never used Tobacco e-Cigarette/Vaping Use: Never Used Special yusef needs: No Agree to transfusion: Yes service: No Current occupational status: employed Current occupation: [employer] EMPLOYEE Current occupational exposures/hazards: Yes Sexual orientation: Bisexual Gender identity: Female Cognitive needs: No Hearing needs: No Vision needs: No Review of Systems Const All systems reviewed & are unremarkable except as noted in HPI and below Physical Exam Vital Signs: Last Vital Signs Temp 98.9 F 03/28/24 11:17 Pulse 77 03/28/24 11:17 BP 100/60 03/28/24 11:17 Pulse Ox 99 03/28/24 11:17 Oxygen Delivery Method Room Air 03/28/24 11:17 BMI result Body Mass Index 32.0 Const Other: Awake alert NAD Sclera and conjunctiva clear bilat Nares with scant d/c bilat, turbinates erythematous and edematous bilat L>R, no sinus tenderness with palpation bilat TM intact bilat, mild fluid behind L TM, chronic effusion R MMM, pharynx mild erythema w/o exudate RRR LS CTAB , dry cough w/o distress noted during exam Assessment & Plan Assessment & Plan (1) Acute upper respiratory infection, unspecified: Code(s): J06.9 - Acute upper respiratory infection, unspecified Plan: . Plan Viral swab obtained today. Results pending Will be alerted if + results RTO only if worsening sx or no improvement in 7 days otherwise supportive care only Orders: Orders SARS-CoV2/FLU/RSV Today J06.9 - Acute upper respiratory infection, unspecified Medications: New benzonatate 100 mg PO TID 10 days PRN 30 caps 1RF cough Patient Instructions: Why aren't I getting antibiotics? I am so sick. I need them. I am empathetic that you're not feeling well & want you to recover quickly. The reason I have not prescribed antibiotics today is because I am an Antibiotic Edilma. What does that mean? It means that I am aiding in reducing Antimicrobial resistance (AMR). Antimicrobial resistance (AMR) is one of the top global public health and development threats. It is estimated that bacterial AMR was directly responsible for 1.27 million global deaths in 2019 and contributed to 4.95 million deaths. The misuse and overuse of antimicrobials in humans, animals and plants are the main drivers in the development of drug-resistant pathogens. Taking an antibiotic increases a patient?s chance of becoming colonized or infected with a resistant organism, and taking an antibiotic when not needed can lead to the development of antibiotic resistance. So the why... is because I care! Coding Level of Care Code Est Pt Level 3 (69246) Diagnoses Acute upper respiratory infection, unspecified J06.9
== END 2024-03-28 11:43 | disposition home or self-care (01) ==
PROVIDERS: Visit Provider Nurse Practitioner Family
DX: J06.9 Acute upper respiratory infection, unspecified (principal)
CPT/HCPCS: 99213

== ENCOUNTER 2024-03-28 14:40 | Outpatient (REF) | payer OTHER, SELFPAY ==
[2024-03-28 15:38] LABS: Influenza A PCR NEGATIVE (Negative); Influenza B PCR NEGATIVE (Negative); Resp Syncy Virus RNA Qual PCR NEGATIVE (Negative); SARS COV2 PCR INHOUSE NEGATIVE (Negative)
== END 2024-03-28 14:41 | disposition home or self-care (01) ==
LOC: HO.LNP 14:40
PROVIDERS: Visit Provider Nurse Practitioner Family
DX: J06.9 Acute upper respiratory infection, unspecified (principal)
CPT/HCPCS: 0241U

== ENCOUNTER 2024-04-16 13:28 | Outpatient (AMB) | payer OTHER, SELFPAY ==
--- NOTE | 2024-04-16 13:17 | A.OFFPC_ITS ---
Vital Signs 04/16/24 13:21 Height 5 ft 2 in Weight 180 lb BMI 32.9 BP 116/54 L Blood Pressure Location Rt brachial Position Sitting Pulse 79 Pulse Source Pulse Oximeter Pulse Oximetry (%) 96 Oxygen Delivery Method Room Air Intake Visit Reasons: STD Testing Intake Note: Patient would like to request an STI panel. 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 Accompanied by: Self / Same As Patient Allergies Seasonal Allergies Allergy (Severe, Verified 04/16/24 13:19) Swelling Medication List - Last Reconciled 04/16/24 by Arlene Manuel, [facility] buspirone 7.5 mg PO BID 30 days escitalopram oxalate (Lexapro) 15 mg (1.5 x 10 mg) PO DAILY etonogestrel (Nexplanon) subdermal fluticasone propionate 50 mcg/actuation 1 spray intranasal BID 90 days triamcinolone acetonide 0.1% 1 appl topical BID Tobacco use date assessed: 11/28/23 Dental Screening Dental Screen Date: 12/26/23 HPI HPI Comments History of Present Illness Details Here today with request for STD screening does not have any current sx however admits to having new sex partners she also reports her nexplanon is and has been for a few months. Urine preg test today negative She has appt w/ [facility] 05/12/24 to discuss control options, however, admits she will cont to be sexually active and is at risk for unplanned . Therefore decision was made to start OCP today. Discussed the option for something like IUD if she prefers not to take something QD Denies contraindication to OCP including tobacco use, clotting or bleeding disorder, personal or family hx of blood clots, migraines w/ aura. Exam Awake alert NAD Speaking in full setences self swabbed for BV Plan: STD screen today Urine preg negative Start Lidia FU with [facility] to discuss options and have nexplanon removed. [facility] Medical History Seasonal allergies Eczema Surgical History No pertinent past surgical history Family History Maternal Grandfather Diabetes Prostate cancer Lung cancer Asthma Hypertension Maternal Grandmother Emphysema lung Hypertension Asthma High blood cholesterol Diabetes Clotting disorder Mother High blood cholesterol Asthma Father High blood cholesterol Kidney stones Hypertension Other Mental health disorder Substance abuse Social History Household Members: Family Housing: House Are you a primary day care worker to a significant other at home: No Do you presently have visiting nurse or other home services: No Alcohol intake: current Alcohol intake frequency: holidays/special occasions only Alcohol type: wine and hard liquor Patient Tobacco Use Status: Never used Tobacco e-Cigarette/Vaping Use: Never Used Special yusef needs: No Agree to transfusion: Yes service: No Current occupational status: employed Current occupation: [employer] Current occupational exposures/hazards: Yes Sexual orientation: Bisexual Gender identity: Female Cognitive needs: No Hearing needs: No Vision needs: No Questionnaire Thrive Questionnaire Date Thrive assessed: 11/28/23 DWIGHT-7 AMB Questionnaire DWIGHT-7 Date DWIGHT - 7 assessed: 12/26/23 Source: Developed by Drs. Tate Rajput, Radha Do, Julián Garibay and colleagues, with an educational kathia from [employer]. Physical exam (Primary Care) Vital Signs: Last Vital Signs Pulse 79 04/16/24 13:21 BP 116/54 L 04/16/24 13:21 Pulse Ox 96 04/16/24 13:21 Oxygen Delivery Method Room Air 04/16/24 13:21 BMI result Body Mass Index 32.9 Tobacco/Smoking Status: Tobacco use Status Tobacco use date assessed 11/28/23 04/16/24 13:26 Patient Tobacco Use Status Never used Tobacco 04/16/24 13:26 e-Cigarette/Vaping Use Never Used 04/16/24 13:26 Thrive Assessment: Date of Thrive Assessment Date Thrive assessed 11/28/23 04/16/24 13:26 Results AMB Test Urine AMB Test Urine Negative Last Edit by ERNESTINE Leonard 04/16/24 14:09 Results Reviewed Results Reviewed: Laboratory Last Values [facility] Negative 04/16/24 14:08 Assessment and Plan Assessment & Plan (1) Screen for STD (sexually transmitted disease): Comment: Testing ordered today. If positive will treat as appropriate. Code(s): Z11.3 - Encounter for screening for infections with a predominantly sexual mode of transmission (2) control counseling: Code(s): Z30.09 - Encounter for other general counseling and advice on contraception (3) test negative: Code(s): Z32.02 - Encounter for test, result negative Plan This note is constructed using voice recognition software. While every effort has been made to ensure accuracy in schedule planning manager, still errors may have been included Sometimes, these errors may affect the content or meaning of the given sentence . Total time spent caring for the patient today was 30 minutes. This includes time spent before the visit reviewing the chart, time spent during the visit, and time spent after the visit on documentation Orders: Orders Bacterial Vaginosis Panel Today Z11.3 - Encounter for screening for infections with a predominantly sexual mode of transmission CT NG by PCR Today Z11.3 - Encounter for screening for infections with a predominantly sexual mode of transmission AMB HCG Urine Test Today Z11.3 - Encounter for screening for infections with a predominantly sexual mode of transmission Medications: New levonorgestrel-ethinyl estrad 90-20 mcg (28) (Lidia (28)) 1 tab PO DAILY 84 tabs 0RF Coding Level of Care Code Est Pt Level 4 (71644) Diagnoses Screen for STD (sexually transmitted disease) Z11.3 control counseling Z30.09 test negative Z32.02
[2024-04-16 13:21] VITALS: BP 116/54; PULSE 79; O2SAT 96; BMI 32.9
== END 2024-04-16 15:56 | disposition home or self-care (01) ==
LOC: HO.HMGFM 13:28
PROVIDERS: Visit Provider Nurse Practitioner Family
DX: Z30.09 Encounter for other general counseling and advice on contraception (principal); Z32.02 Encounter for pregnancy test, result negative
CPT/HCPCS: 81025; 99214

== ENCOUNTER 2024-04-16 13:56 | Outpatient (REF) | payer OTHER, SELFPAY | END 2024-04-16 13:57 | disposition home or self-care (01) | LOC: HO.LAB 13:56 | PROVIDERS: Visit Provider Nurse Practitioner Family | DX: Z13.89 Encounter for screening for other disorder (principal) ==

== ENCOUNTER 2024-04-16 14:06 | Outpatient (REF) | payer OTHER, SELFPAY ==
[2024-04-16 18:04] LABS: Appearance Urine Clear; Color Urine Yellow; Glucose Urine UA Negative (Negative); Leukocyte Esterase Urine Trace (Negative); Nitrite Urine Negative (Negative); PH 5.5 (5.0-9.0); Specific Gravity - Urine 1.015 (1.005-1.025); UMIC TRIGGER UA YES; Urine Blood Small (1+) (Negative); Urine Ketones Negative (Negative); Urine Protein Negative (Neg-Trace)
[2024-04-16 18:15] LABS: Bacteria Urine None Seen (None Seen); Hyaline Casts Urine 0-2 /LPF (0-2); RBC Urine 0-2 /HPF (0-2); Squamous Epithelial Cell Urine 0-2 /HPF (0-2); WBC Urine 0-5 /HPF (0-5)
[2024-04-17 07:41] LABS: HBS Num1 54.92 mIU/mL (0-7.99); ~Hepatitis B Surface Antibody REACTIVE (Nonreactive)
[2024-04-17 07:44] LABS: HIV AB/AG Nonreactive (Nonreactive); HIV Num 1 0.06 S/CO (0.00-0.99)
[2024-04-17 07:48] LABS: Syphilis Screen Nonreactive (Nonreactive)
[2024-04-17 11:03] LABS: Bacterial Vaginosis PCR POSITIVE (Negative); Candida Group PCR DETECTED (Not Detect); Candida glab krusei PCR DETECTED (Not Detect); Trichomonas vaginalis PCR DETECTED (Not Detect)
[2024-04-17 12:13] LABS: CT PCR NOT DETECTED (Not Detect.); NG PCR NOT DETECTED (Not Detect.)
== END 2024-04-16 14:07 | disposition home or self-care (01) ==
LOC: HO.WFDLDS 14:06
PROVIDERS: Nurse Practitioner Family; Visit Provider Nurse Practitioner Family
DX: Z11.3 Encounter for screening for infections with a predominantly sexual mode of transmission (principal); Z01.84 Encounter for antibody response examination
CPT/HCPCS: 0352U; 36415; 81001; 86706; 86780; 87389; 87491; 87591

== ENCOUNTER 2024-04-16 14:08 | Outpatient (REF) | payer OTHER, SELFPAY | END 2024-04-16 14:09 | disposition home or self-care (01) | LOC: HO.LNP 14:08 | PROVIDERS: Visit Provider Nurse Practitioner Family | DX: Z13.89 Encounter for screening for other disorder (principal) ==